=== PATIENT | male | born 1970 | race Caucasian/White ===

== ENCOUNTER 2019-04-14 09:25 | Emergency (ER) | payer OTHER ==
--- NOTE | 2019-04-14 10:59 | UC ---
Skin Complaint HPI - HPI Summary HPI Summary: Pt presents to with friends. Pt has ongoing progressive severe cracking rash on bilateral hands. pt states he works as a [employer] and attributes the rash to gloves. pt states he has seen a probe operator in [facility] (he lives close to [facility]) Pt states initially changed latex to non latex gloves. States seemed to help for awhile, but no longer. Pt schedule to see dermatologis this week. States has become increased red and itching. No fever, chills. Pt has topical steroid cream but hasn't been using because skin "too thin" pt does not have a pcp Pt here requesting I complete paperwork for FMLA cause "Cant work and cant miss more than 2 weeks" Pt also requested I "check hands" Medications reviewed - History of Current Complaint Chief Complaint: UCRash Time Seen by Provider: 04/14/19 10:58 Stated Complaint: RASH ON HANDS/ARMS Hx Obtained From: Patient Pain Intensity: 8 - Allergy/Home Medications Allergies/Adverse Reactions: Allergies Allergy/AdvReac Type Severity Reaction Status Date / Time No Known Allergies Allergy Verified 04/14/19 09:47 Home Medications: Home Medications Triamcinolone 0.5% CREAM(NF) [Triamcinolone 0.5% CREAM*] 1 applic TOPICAL [History] PMH/Surg Hx/FS Hx/Imm Hx Previously Healthy: Yes - Surgical History Surgical History: None - Family History Known Family History: Positive: Non-Contributory - Social History Occupation: Employed Full-time Lives: With Family Alcohol Use: Daily Substance Use Type: Marijuana Substance Use Comment - Amount & Last Used: weekly Smoking Status (MU): Never Smoked Tobacco Review of Systems All Other Systems Reviewed And Are Negative: Yes Skin: Positive: Other - bilaratl had peeling skin, erythema Physical Exam - Summary Physical Exam Summary: Vital Signs Reviewed: Yes low grade temp A+Ox3, no distress, Eyes: Conjunctiva Clear strabismus right eye ENT: Hearing grossly normal Neck: Positive: Supple Respiratory: Positive: No respiratory distress, No accessory muscle use + CTA throughout no w/r Cardiovascular: RRR nl s1, s2 no m/r CBT <2 sec Musculoskeletal Exam: + flex/ext elbow, wrist Neurological: Positive: Alert, + sensation throughout Psychological: Positive: Normal Response To Family Skin: Positive: no ecchymosis b/l hands - dorsum and volar aspect peeling cracked skin with area of exposed raw area with mild erythema extending to dosrum wrist. Triage Information Reviewed: Yes Vital Signs: Initial Vital Signs Temp 98.8 F 04/14/19 09:40 Pulse 86 04/14/19 09:40 Resp 18 04/14/19 09:40 BP 147/75 04/14/19 09:40 Pulse Ox 99 04/14/19 09:40 Course/Dx - Course Course Of Treatment: PT presents requesting FMLA note related to his dry cracked hands that he relates to wearing gloves at work. Pt from out of [facility], does not have PCP. Pt does have a probe operator in [facility] -plans to see this week. Pt scheduled to work tonight and tomorrow night exam : pt with significant skin peeling, and erythema b/l hands -almost psoriasis appearing concern for underlying infection given erythema and weeping of some wounds I will start doxycylcine (assume MRSA second to occupation) Expressed to pt I tariq not complete [facility] paperwork - I dont have a professional relationship with pt Pt declined services for PCP in [facility] will give note for no work today and tomorrow - pt seeing derm on Sun recommend establish PCP retuurn precautions elevated BP - recommend f/u with a primary - Diagnoses Provider Diagnosis: Rash of hands Discharge - Sign-Out/Discharge Documenting (check all that apply): Patient Departure All imaging exams completed and their final reports reviewed: No Studies - Discharge Plan Condition: Stable Disposition: HOME Prescriptions: DOXYcycline CAP(*) [DOXYcycline 100MG CAP(*)] 100 mg PO BID #20 cap predniSONE TAB* [Deltasone 20 MG TAB*] 20 mg PO DAILY #13 tab Patient Education Materials: Acute Rash (ED) Forms: *Work Release Referrals: No Primary Care Phys,NOPCP [Primary Care Provider] - Additional Instructions: As discussed, the doctor evaluated today is concerned about the appearance of your wounds. It is strongly recommended to follow-up with her probe operator in your [facility] this week. Take prednisone as prescribed until gone. Take doxycycline as prescribed until gone. Make sure you completely dry hands after washing. Do not use soaks that has since or exfoliating services. Is recommended that you cover your hands with a mild lotion such as Aveeno. If you develop increased pain, fever, red spreading , or any other concerns is recommended equally emergency department for further evaluation treatment. It is very important that you schedule with primary care provider in your hometown. - Billing Disposition and Condition Condition: STABLE Disposition: Home
== END 2019-04-14 11:24 | disposition home or self-care (01) ==
LOC: UCEAST 09:25
DX: R21 Rash and other nonspecific skin eruption (principal)
CPT/HCPCS: 99202; G0463